=== PATIENT | female | born 2000 | race Caucasian/White ===

== ENCOUNTER 2021-01-18 02:15 | Day surgery (SDC) | payer BC, SELFPAY ==
[2021-01-14 10:55] VITALS: BMI 22.3
--- NOTE | 2021-01-16 08:56 | PM.IMHP ---
H&P: HPI History of Present Illness Date/Time: 01/16/21 08:56 Patient presents for planned surgical procedure. No change in symptoms or medical history. Chief Complaint: Chronic tonsillitis, recurrent tonsillitis, chronic pharyngitis, recurrent pharyngitis Review of Systems Constitutional: Constitutional: Denies fatigue, Denies fever(s) and Denies lethargy Eyes: Eyes: Denies blurry vision and Denies change in vision ENT: Reports as per HPI Cardiovascular: Cardiovascular: Denies chest pain Respiratory: Respiratory: Denies cough Endocrine: Endocrine: Denies fatigue Hematologic/Lymphatic: Hematologic/Lymphatic: Denies easy bleeding, Denies easy bruising and Denies lymphadenopathy Allergic/Immunologic: Allergic/Immunologic: Denies seasonal rhinorrhea [facility] Past Medical History Medical History BMI 22.0-22.9, adult Family History Family History Father Hypertension Depression Mother Depression Sibling No problems noted. Grandparent Cancer Hypertension Depression Heart disease Grandparent Hypertension Depression Other Malignant neoplasm of prostate Skin cancer Thyroid cancer Social History Social History Smoking status: Current every day smoker Tobacco type: e-cigarettes/vaping Second hand tobacco smoke exposure: No Alcohol intake: current Drinks per week: 2 Alcohol use details: HARD LIQUOR Substance use: current Substance use type: marijuana Other substance usage details: 1GM/WEEK Last use: 01/10/2021 Living arrangements: with family Additional occupation/education comments: Interior design Gender identity (if verbalized by the patient): Female Spiritual care concerns: No Meds Home Medications and Allergies Home Medications Medication Instructions Recorded Confirmed Type etonogestrel 0.12 mg-ethinyl 1 vag ring VAGINAL ONCE 07/29/19 01/14/21 History estradiol 0.015 mg/24 hr vaginal ring fluoxetine 10 mg capsule 10 mg PO DAILY #30 cap 12/26/20 01/14/21 Rx ibuprofen 400 mg PO Q6H PRN 01/14/21 01/14/21 History multivit with min-folic acid 1 tablet PO DAILY 01/14/21 01/14/21 History [Adult One Daily Multivitamin] Allergies Allergy/AdvReac Type Severity Reaction Status Date / Time clindamycin Allergy Severe FACIAL Verified 01/14/21 10:52 SWELLING Penicillins Allergy Severe ANAPHYLACTIC Verified 01/14/21 10:52 REACTION doxycycline Allergy Intermediate Hives / Verified 01/14/21 10:52 Red Face Exam Const: General: cooperative, healthy appearing, comfortable, well developed and alert HENMT: Head: normal to inspection, normocephalic and atraumatic Ears: hearing grossly normal bilaterally, external ears normal, TM's normal bilaterally and EAC's normal General nose exam: Normal external nose present, Normal nares present, No nasal polyps present, Normal nasal mucous membranes and turbinates present and Normal septum present Face and sinus: normal facial exam Mouth: Yes Normal oral and palatal mucosa present, Yes lip normal, Yes tongue normal, Yes oropharynx normal and Yes moist mucous membranes Teeth and gingiva: dentition normal and gingiva normal Throat: posterior oropharynx normal, tonisls abnormal ( 3+ edematous cryptic) and uvula midline Eyes: General: appearance normal, both eyes and all related structures Periorbital: periorbital findings normal Eyelids: eyelids normal Conjunctivae: conjunctivae normal Sclera: sclerae normal Neck: Neck: normal visual inspection, full ROM and no lymphadenopathy Thyroid: thyroid normal Lymphatic: no lymphadenopathy noted Resp: Effort & Inspection: normal respiratory effort and able to speak in complete sentences Cardio: Jugular venous distension: no JVD Neuro: Cranial nerves: Yes CN's II-XII intact
[2021-01-18] VITALS (8 sets, daily range): BP systolic 94–119; BP diastolic 47–81; PULSE 59–98; RESP 12–21; TEMP 36.2–37.2; O2SAT 99–100
--- NOTE | 2021-01-18 07:03 | WPDHPUPDATE1 ---
History and Physical Update Update Date/Time: 01/18/21 07:03 History and Physical has been reviewed, including an updated exam of the patient. There are NO changes in the patient's condition. Risks, benefits, and alternatives have been discussed and questions answered. Patient agrees to proceed with procedure.
--- NOTE | 2021-01-18 09:46 | P.PNAN_ITS ---
Anes - Initial Pre Proc Eval Procedure: Operation Date: 01/18/21 11:30 Proposed Procedures p Tonsillectomy - Jl Balbuena MD Date/Time: 01/18/21 09:46 Surgeon: Jl Balbuena MD Pre Op Diagnosis: chronic tonsillitis Patient Data Age: 20 Gender: F Height: 1.63 m Weight: 58.97 kg Allergies Allergy/AdvReac Type Severity Reaction Status Date / Time clindamycin Allergy Severe FACIAL Verified 01/14/21 10:52 SWELLING Penicillins Allergy Severe ANAPHYLACTIC Verified 01/14/21 10:52 REACTION doxycycline Allergy Intermediate Hives / Verified 01/14/21 10:52 Red Face Home Medications Medication Instructions Recorded Confirmed Type etonogestrel 0.12 mg-ethinyl 1 vag ring VAGINAL ONCE 07/29/19 01/14/21 History estradiol 0.015 mg/24 hr vaginal ring fluoxetine 10 mg capsule 10 mg PO DAILY #30 cap 12/26/20 01/14/21 Rx ibuprofen 400 mg PO Q6H PRN 01/14/21 01/14/21 History multivit with min-folic acid 1 tablet PO DAILY 01/14/21 01/14/21 History [Adult One Daily Multivitamin] Patient hx anesthesia problems: none Family hx anesthesia problems: none PMFSH Past Medical History Medical History BMI 22.0-22.9, adult Family History Family History Father Hypertension Depression Mother Depression Sibling No problems noted. Grandparent Cancer Hypertension Depression Heart disease Grandparent Hypertension Depression Other Malignant neoplasm of prostate Skin cancer Thyroid cancer Social History Social History Smoking status: Current every day smoker Tobacco type: e-cigarettes/vaping Second hand tobacco smoke exposure: No Alcohol intake: current Drinks per week: 2 Alcohol use details: HARD LIQUOR Substance use: current Substance use type: marijuana Other substance usage details: 1GM/WEEK Last use: 01/10/2021 Living arrangements: with family Additional occupation/education comments: Interior design Gender identity (if verbalized by the patient): Female Spiritual care concerns: No Anes - Eval Final PreProcedure Day of Procedure 01/18/21 09:46 Patient weight: normal Heart: regular rate and rhythm Lungs: clear to auscultation Airway: Mallampati scale class II Neurological: alert and oriented Last oral intake: >/= 8 hours ASA classification: II Emergent: no Anesthetic plan: proceed Anesthesia type and monitoring: general ETT and standard monitoring Informed Consent: The patient's anesthetic plan and its attendant risks and benefits were discussed with the patient/family/POA. Questions were solicited and answers provided to the satisfaction of the patient/family/POA.
[2021-01-18] MEDS: LACTATED RINGERS 1,000 ML 30 ML IV CONT ×2 (09:50→11:50)
[2021-01-18] MEDS: ACETAMINOPHEN 500 MG TABLET 1000 MG PO (09:50)
--- NOTE | 2021-01-18 11:11 | P.OP_ITS ---
Procedure Note - Detailed Date of Procedure 01/18/21 Pre-op Diagnosis chronic tonsillitis , recurrent tonsillitis Post-op Diagnosis same Procedure Performed tonsillectomy Surgeon Jl Balbuena MD Statement Services Representative none Anesthesia general Indications see above Findings 2+ edematous cryptic tonsils with stones present Description of Procedure the patient was correctly identified and consent was verified in the preoperative holding area. The patient was then brought to the operating room time-out was performed. General anesthesia was induced and endotracheal tube was secured the patient's airway in the midline. Patient was then prepped and draped for the aforementioned procedures. McIvor mouth gag was inserted the patient's airway revealing tonsils with the above findings. The left was grasped with a curved Allis and removed in the extracapsular plane using size Bovie electrocautery at a setting of 10 hemostasis was achieved using intermittent application of suction Bovie electrocautery at a setting of 15. The exact same procedure was performed on the right tonsil with exact same findings. The McIvor mouth gag was then lowered for 30 seconds and reopened reveal no bleeding. I performed all dictated portions of the procedure all the hardware including McIvor mouth gag was removed from the patient's airway. Care the patient was turned over to Anesthesiology. Blood loss 15 cc. There were no complications. Estimated Blood Loss -15.0 Drains No Packing No Pathology yes Complications No immediate complications Condition stable Disposition PACU
[2021-01-18] MEDS: fentaNYL CITRATE INJ (*CRX) 100 MCG/2 ML VIAL 25 MCG IV PUSH ×4 (11:23→11:47)
--- NOTE | 2021-01-18 11:51 | SUR.PHASEI ---
PT AWAKE AND ALERT. STATES THROAT PAIN IMPROVED NOW. READY FOR PO FLUIDS.
== END 2021-01-18 13:18 | disposition home or self-care (01) ==
PROVIDERS: PCP Family Medicine; Visit Provider Otolaryngology
PROC: (CPT 42826; principal; 2021-01-18 11:30)
DX: J35.01 Chronic tonsillitis (principal); F17.290 Nicotine dependence, other tobacco product, uncomplicated; F12.90 Cannabis use, unspecified, uncomplicated
CPT/HCPCS: 42826; 88302; A9270; J0330; J1100; J2250; J2405; J2704; J3010; J7120

== ENCOUNTER → 2021-04-26 11:51 | Outpatient (CLI) | payer BC, SELFPAY ==
--- NOTE | ~2021-04-26 | US_ITS ---
EXAMINATION: US transvaginal DATE: 04/26/2021 12:17 INDICATION: Other intra-abdominal and pelvic swelling, mass, and lump. Left lower quadrant abdominal pain. TECHNIQUE: Multiple transvaginal sonographic images of the pelvis were obtained. COMPARISON: CT abdomen and pelvis 07/08/2018, pelvis ultrasound 08/02/2018 FINDINGS: The uterus measures 6.7 x 3.3 x 4.6 cm. There is no free fluid in the pelvis. The endometrial complex measures 12 mm in thickness. The right ovary measures 2.3 x 2.4 x 2.4 cm. The left ovary measures 6. 2 x 6.7 x 7.7 cm. There is a 6.6 cm cyst in left ovary. There is normal vascular flow in the ovaries. IMPRESSION: 1. 6.6 cm cyst in left ovary, new from 08/02/18, likely benign. Pelvis ultrasound is recommended in one year. Reviewed, dictated and finalized at location A.
== END ==
PROVIDERS: Visit Provider Nurse Practitioner
DX: R19.09 Other intra-abdominal and pelvic swelling, mass and lump (principal); N83.202 Unspecified ovarian cyst, left side
CPT/HCPCS: 76830

== ENCOUNTER → 2021-05-24 11:00 | Outpatient (CLI) | payer BC, SELFPAY ==
--- NOTE | ~2021-05-24 | US_ITS ---
EXAMINATION: US transvaginal DATE: 05/24/2021 11:16 INDICATION: Left lower quadrant pain. History of left ovarian cyst. Comparison:Ultrasound dated 04/26/2021 TECHNIQUE: Multiple transabdominal and endovaginal sonographic images of the pelvis performed. FINDINGS: The uterus measures 6.9 x 3.8 x 4.5 cm. The endometrial complex measures 9 mm. The right ovary measures 2.8 x 2.8 x 2.1 cm and the left ovary measures 2.2 x 2.2 x 2 cm. There is a small follicle in the left ovary measuring 1.5 cm. Normal doppler signal in both ovaries. There is free fluid in the pelvis. There are no abnormal masses seen on either side. IMPRESSION: 1. Small left ovarian follicle measuring 1.5 cm. Otherwise, unremarkable pelvic ultrasound. Reviewed, dictated and finalized at location A. ENGINEER
== END ==
PROVIDERS: Visit Provider Obstetrics & Gynecology Gynecology
DX: N83.202 Unspecified ovarian cyst, left side (principal)
CPT/HCPCS: 76830

== ENCOUNTER → 2021-06-26 01:40 | Outpatient (CLI) | payer BC, SELFPAY ==
[2021-06-27 02:22] LABS: SARS-CoV-2 RNA PCR Positive
== END ==
PROVIDERS: PCP Family Medicine; Visit Provider Nurse Practitioner Family
DX: U07.1 COVID-19 (principal)
CPT/HCPCS: C9803; U0003; U0005

== ENCOUNTER 2021-10-07 10:17 | Outpatient (CLI) | payer BC, SELFPAY ==
--- NOTE | 2021-10-07 10:43 | ECG_ITS ---
Measurements Intervals [place] Rate: 59 P: 57 GA: 135 QRS: 34 QRSD: 81 T: 2 QT: 456 QTc: 453 Interpretive Statements SINUS BRADYCARDIA WITH SINUS ARRHYTHMIA NONSPECIFIC T-WAVE ABNORMALITY NO PREVIOUS ECG AVAILABLE FOR COMPARISON Electronically Signed On 10-07-2021 15:40:26 CDT by Ever Johnson M.D.
[2021-10-07 11:05] LABS: Hematocrit 36.7 % (37.0-47.0); Hemoglobin 11.8 g/dL (12.0-15.0); Mean Corpuscular HGB Conc 32.2 g/dl (32-36); Mean Corpuscular Hemoglobin 28.3 pg (26-34); Mean Platelet Volume 9.8 fl (7.4-10.4); Platelet Count Result 287 k/mm3 (150-375); Red Blood Count 4.17 M/mm3 (4.2-5.4); Red Cell Distribution Width 12.8 % (11.5-14.5); White Blood Count 5.4 K/mm3 (4.5-10.0)
[2021-10-07 11:13] LABS: Pregnancy On Board Control Positive; Urine Pregnancy Test Negative
[2021-10-07 11:16] LABS: Anion Gap 8 mmol/L (8-16); Blood Urea Nitrogen 11 mg/dL (7-17); Calcium 8.4 mg/dL (8.4-10.2); Carbon Dioxide 22 mmol/L (22-30); Chloride 107 mmol/L (98-107); Estimated Glomerular Filt Rate > 60; Glucose 92 mg/dL (65-110); Potassium 4.1 mmol/L (3.4-5.0); Sodium 137 mmol/L (137-145)
== END 2021-10-07 10:18 | disposition home or self-care (01) ==
PROVIDERS: PCP Family Medicine; Visit Provider Nurse Practitioner Family
DX: F41.8 Other specified anxiety disorders (principal); N92.6 Irregular menstruation, unspecified; R10.9 Unspecified abdominal pain; R07.89 Other chest pain; R00.1 Bradycardia, unspecified
CPT/HCPCS: 36415; 80048; 81025; 84443; 85027; 93005

== ENCOUNTER 2021-10-23 11:04 | Outpatient (CLI) | payer BC, SELFPAY ==
--- NOTE | 2021-10-29 12:37 | WPDHOLTEREM ---
Holter/Event Monitor Holter/Event Monitor Date of procedure: 10/23/21 Holter/Event Procedure: 24 Hr Holter Monitor Indications: Cardiac arrhythmia Conclusion: 1. 24 hour holter monitor on 10/23/21. 2. Underlying rhythm is sinus rhythm. HR range 49-160 bpm; average HR 85 bpm. HR at 160 bpm was at 14:36. 3. There are 2 premature supraventricular complexes. No supraventricular tachycardia. 4. No premature ventricular complexes. No ventricular tachycardia. 5. No sinoatrial or atrioventricular blocks. No significant pauses greater than 2 seconds. 6. Patient reports symptoms of chest pain, dizziness which demonstrate sinus rhythm, HR range 86-115 bpm.
== END 2021-10-23 11:05 | disposition home or self-care (01) ==
PROVIDERS: PCP Family Medicine; Visit Provider Nurse Practitioner Family
DX: I49.9 Cardiac arrhythmia, unspecified (principal)
CPT/HCPCS: 93225; 93226

== ENCOUNTER → 2022-10-28 10:47 | Outpatient (CLI) | payer BC, SELFPAY ==
--- NOTE | ~2022-10-28 | XR_ITS ---
Clinical Indication: Chest pain PA and lateral views of the chest: Comparison: 09/02/2018 Findings: The lungs are clear, without evidence of focal consolidation or pleural effusion. Cardiome diastinal silhouette is within normal limits. Bones and soft tissues are unremarkable. Impression: Normal chest. Reviewed, dictated and finalized at location . Impression: Normal chest.
== END ==
PROVIDERS: PCP Family Medicine; Visit Provider Nurse Practitioner Family
DX: R07.9 Chest pain, unspecified (principal); R06.02 Shortness of breath
CPT/HCPCS: 71046

== ENCOUNTER 2023-01-22 10:45 | Outpatient (CLI) | payer BC, SELFPAY ==
--- NOTE | 2023-01-22 10:54 | ECHO_ITS ---
Patient Info Name: Susan Hernandez Age: 22 years : 2000 Gender: Female Ht: 64 in Wt: 130 lbs BSA: 1.64 m2 HR: 74 bpm BP: 115 / 83 mmHg Heart Rhythm: Sinus Rhythm Technical Quality: Good Exam Date: 01/22/2023 11:05 AM Exam Location: [facility] Patient Status: Outpatient Admit Date: 01/22/2023 Staff Ordering Physician: Jason Bellamy MD Manager Law: Rodolfo Sood RDCS Attending Provider: Jason Bellamy MD Referring Physician: Josesito BOGGS; Exam Type: CA echo doppler color flow Study Info Indications - cardiac Arythmia Complete two-dimensional, color flow and Doppler transthoracic echocardiogram is performed. Summary 1. Complete two-dimensional, color flow and Doppler transthoracic echocardiogram is performed. 2. Left ventricular chamber dimension is normal. 3. Left ventricular systolic function is normal, estimated at 60-65%. 4. The left ventricular diastolic function is normal. 5. E/e' 6 is not elevated. 6. Atrial septal aneurysm without shunt by color doppler. 7. There is trace tricuspid valve regurgitation. 8. No pulmonary hypertension, estimated pulmonary arterial systolic pressure is 27 mmHg. Left Ventricle E/e' 6 is not elevated. Left ventricular chamber dimension is normal. Left ventricular systolic function is normal, estimated at 60-65%. The left ventricular diastolic function is normal. Right Ventricle Right ventricular systolic function is normal and with normal TAPSE 2.6 cm. Right ventricular chamber dimension is normal. Left Atria Left atrial chamber dimension is normal. Right Atria Right atrial chamber dimension is normal. Atrial Septum Atrial septal aneurysm without shunt by color doppler. Aortic Valve The aortic valve is trileaflet. There is no aortic valve stenosis. There is no aortic valve regurgitation. Pulmonic Valve There is no pulmonic regurgitation. Mitral Valve There is no mitral valve stenosis. There is no mitral valve regurgitation. Tricuspid Valve There is trace tricuspid valve regurgitation. No pulmonary hypertension, estimated pulmonary arterial systolic pressure is 27 mmHg. Pericardium/Pleural There is no pericardial effusion. Inferior Vena Cava Normal inferior vena cava with >50% collapse upon inspiration consistent with normal right atrial pressure, 5 mmHg. Aorta The aortic root size at the sinus of Valsalva is normal. Left Ventricular Outflow Tract Name Value Normal LVOT 2D LVOT Diameter 1.9 cm LVOT Doppler LVOT Peak Gradient 3 mmHg LVOT Mean Gradient 2 mmHg LVOT VTI 26 cm LVOT VTI/AV VTI Ratio 1.1 LVOT Stroke Volume 75 ml LVOT CO 4.2 l/min LVOT CI 2.5 l/min/m2 Pulmonic Valve Name Value Normal RVOT Doppler RVOT Peak Gradient
--- NOTE | 2023-02-02 16:59 | WPDHOLTEREM ---
Holter/Event Monitor Holter/Event Monitor Date of procedure: 01/22/23 Holter/Event Procedure: 48 Hr Holter Monitor Indications: Palpitations Conclusion: 1. 48 hour holter monitor on 01/22/23. 2. Underlying rhythm is sinus rhythm. HR range 47-171 bpm; average HR 88 bpm. HR at 171 bpm is at 01:38. 3. There are 3 premature supraventricular complexes. No supraventricular tachycardia. 4. There are 7 premature ventricular complexes. No ventricular tachycardia. 5. No sinoatrial or atrioventricular blocks. No significant pauses greater than 2 seconds. 6. No symptoms available for correlation.
== END 2023-01-22 10:46 | disposition home or self-care (01) ==
LOC: ANHCARD 10:46
PROVIDERS: PCP Family Medicine; Visit Provider Family Medicine
DX: I49.9 Cardiac arrhythmia, unspecified (principal); R07.89 Other chest pain; D64.9 Anemia, unspecified
CPT/HCPCS: 93225; 93226; 93306

== ENCOUNTER 2023-02-13 14:00 | Outpatient (CLI) | payer BC, SELFPAY ==
--- NOTE | 2023-02-13 16:22 | WPDPFTINT ---
PFT Procedure Performed PFT Procedure Performed Spirometry with Pre/Post Bronchodilator Plethysmography (Lung Vol) Diffusing Cap (DLCO) Flow Vol Loop PFT Interpretation This is a pulmonary function test with pre and post-bronchodilator spirometry, plethysmography and diffusing capacity. The test was performed and results interpreted in accordance with the 2019 and 2005 ATS/ERS Task Force guidelines respectively using the Global Lung Function Initiative-2012 reference equations. Patient demonstrated good effort and cooperation. Reproducibility criteria were met. The quality of the pre bronchodilator spirometry maneuver was Grade B and post bronchodilator spirometry maneuver was Grade A. Findings: Spirometry: There is decreased maximal expiratory airflow at low lung volumes. The contour the inspiratory flow tracing is normal. The pre bronchodilator FVC is 3.45 L, 77% predicted. The pre bronchodilator FEV1 is 2.46 L, 64% predicted. The pre bronchodilator FEV1: FVC ratio 71%. The post bronchodilator FVC is 3.48 L, representing 1% increase. The post bronchodilator FEV1 is 2.25 L, representing a 9% decrease. The post bronchodilator FEV1: FVC ratio is 65%. Plethysmography: The total lung capacity is 5.23 L, 92% predicted. The functional residual capacity is 2.99 L, 115% predicted. The residual volume is 1.78 L, 157% predicted. Diffusing capacity: The diffusing capacity unadjusted for hemoglobin and carboxyhemoglobin is 23.9, 69% predicted. The diffusing capacity adjusted for alveolar volume is 5.20, 90% predicted. Impression: There is a moderate obstructive abnormality without significant improvement after inhaling a single dose of albuterol. The lung volumes are normal. The diffusing capacity unadjusted for hemoglobin and carboxyhemoglobin is mildly decreased and normalizes when adjusted for alveolar volume. There are no prior studies for comparison
== END 2023-02-13 14:01 | disposition home or self-care (01) ==
LOC: ANHPFT 14:01
PROVIDERS: PCP Family Medicine; Visit Provider Family Medicine
DX: R06.02 Shortness of breath (principal); R94.2 Abnormal results of pulmonary function studies
CPT/HCPCS: 94060; 94726; 94729

== ENCOUNTER 2023-03-25 15:57 | Outpatient (CLI) | payer BC, SELFPAY ==
--- NOTE | ~2023-03-25 | CT_ITS ---
EXAMINATION: CT diagnostic chest wo con DATE: 03/25/2023 16:14 INDICATION: Bronchiolitis TECHNIQUE: Computed tomography (CT) of the chest was performed without intravenous contrast. The dose -length product was 128.87 mGy-cm. Automated exposure control and iterative reconstruction technique were employed. COMPARISON: Chest dated 10/28/2022 FINDINGS: Heart size is normal. No significant pleural or pericardial effusion. There is mild axillar y lymphadenopathy, likely reactive. No mediastinal or hilar lymphadenopathy. No significant pleural o r pericardial effusion. There is a low-density lesion in the spleen, most likely benign cyst or lymph angioma. No focal airspace consolidation. There are a few small scattered 1-2 mm nodules of the lungs , likely benign. No pneumothorax. No endobronchial lesions. IMPRESSION: 1. No acute cardiopulmonary disease. 2: Mild axillary lymphadenopathy, likely reactive. Reviewed, dictated and finalized at location L.
== END 2023-03-25 15:58 | disposition home or self-care (01) ==
PROVIDERS: PCP Family Medicine; Visit Provider Internal Medicine Pulmonary Disease
DX: J44.9 Chronic obstructive pulmonary disease, unspecified (principal)
CPT/HCPCS: 71250

== ENCOUNTER 2023-09-08 08:23 | Outpatient (CLI) | payer OTHER, SELFPAY ==
--- NOTE | 2023-09-09 23:19 | WPDPFTINT ---
PFT Procedure Performed PFT Procedure Performed Spirometry with Pre/Post Bronchodilator Plethysmography (Lung Vol) Diffusing Cap (DLCO) Flow Vol Loop PFT Interpretation DOS: 09/08/2023 REQUESTING: Dr. Evangelist Kumar REASON FOR TESTING: COPD, history of vaping PULMONARY FUNCTION TESTS Results are reliable and reproducible. Spirometry: Pre bronchodilator FEV1 is 2.86 L, 86% predicted, normal. Pre bronchodilator FVC is 3.71 L, 97% predicted, normal. FEV1/FVC ratio is 77%, normal. After bronchodilator there is 3% increase in the FEV1, 2.95 L. After bronchodilator there is 2% increase in the FVC, 3.79 L, normal. These are non statistically significant increases. The FEV1/FVC ratio remained 78%. Normal. Lung volumes: Total lung capacity 4.97 L, 98%, normal. Residual volume 1.13 L, 91% predicted, normal. RV/TLC 23%, normal. Airway resistance 1.89 cmH2O/L/sec, 141% predicted. Diffusion: DLCO is 19.5, 76%, normal. DLCO/VA is 4.31, 86%, normal. Flow volume loop: Normal IMPRESSION: This is full pulmonary function test shows normal spirometry without response to bronchodilator, normal lung volumes and normal diffusion capacity. Compared to a prior PFT on 02/13/2023 there was a moderate obstructive ventilatory impairment which has resolved. Different ranges for normals are now used in reporting values however the absolute values for spirometry are improved. The previous FEV1 pre bronchodilator was 2.46 L, 64% predicted, now 2.86 L, 86%, 400 mL improvement. The FVC was 3.45 L 77%, now 3.71 L, 97%; 260 mL higher. The FEV1/FVC ratio is 77%, now normal, previously was 71%, below normal. The total lung capacity was 5.23 L, now 4.97 L, still in the normal range. The residual volume was 1.78 L, 157% predicted, now residual volume is 1.13 L, 91% predicted. RV/TLC was increased at 34%, now normal at 23%. The air trapping has resolved. Diffusion appears stable. The current DLCO is 19.5, 76%. The DLCO/VA is 4.31, 86%. Previous values were similar, DLCO 23.9 which was 69%. The DLCO/VA was 5.20, 90%. Yumiko Jung MD
== END 2023-09-08 08:24 | disposition home or self-care (01) ==
LOC: ANHPFT 08:24
PROVIDERS: PCP Family Medicine; Visit Provider Internal Medicine Pulmonary Disease
DX: J44.9 Chronic obstructive pulmonary disease, unspecified (principal)
CPT/HCPCS: 94060; 94726; 94729

== ENCOUNTER 2023-10-19 14:14 | Emergency (ER) | payer OTHER, SELFPAY ==
--- NOTE | ~2023-10-19 | US_ITS ---
EXAMINATION: US pelvic complete DATE: 10/19/2023 20:44 INDICATION: left adnexal pain TECHNIQUE: Multiple transabdominal and endovaginal sonographic images of the pelvis were obtained. COMPARISON: CT abdomen pelvis 10/19/2023. FINDINGS: Uterus: 8.3 x 4.2 x 5.3 cm. IUD, in good position. Endometrial complex obscured by the IUD. Right Ovary: 3.7 x 1.5 x 2.5 cm. Vascular flow is present. No adnexal mass. Left Ovary: 5.1 x 4.7 x 5.2 cm. Vascular flow is present. 5.2 cm cystic left adnexal mass, associated with the left ovary, nonshadowing nonvascular nodular internal echogenicity measuring 8 mm. There is no free fluid in the pelvis. IMPRESSION: 5.2 cm left ovarian cystic mass with internal nodule (O-RADS 3, low risk of malignancy). Recommend gy necology referral and nonemergent but timely pelvic MRI for further evaluation. Reviewed, dictated and finalized at location K. IMPRESSION: 5.2 cm left ovarian cystic mass with internal nodule (O-RADS 3, low risk of mal ignancy). Recommend gynecology referral and nonemergent but timely pelvic MRI f or further evaluation.
--- NOTE | ~2023-10-19 | CT_ITS ---
EXAMINATION: CT abdomen pelvis w con DATE: 10/19/2023 18:15 INDICATION: abdominal pain TECHNIQUE: Computed tomography (CT) of the abdomen and pelvis was performed with 100 mL Omnipaque-350 intravenous contrast. Automated exposure control and iterative reconstruction technique were employe d. The dose-length product was 225.51 mGy-cm. COMPARISON: 07/08/2018, report only; pelvic ultrasound performed on 08/02/2018, 04/26/2021, 05/24/2021. FINDINGS: Lower thorax: Unremarkable Liver: Normal. Biliary/Gallbladder: Gallbladder is normal. No bile duct dilation. Pancreas: No mass or duct dilation. Spleen: Simple cyst. Adrenals:No mass. Kidneys: No suspicious mass, obstructing stone, or hydronephrosis. GI tract: Mild distal esophageal and gastric wall edema. No small or large bowel dilation. Normal catherine endix. Mesentery/Peritoneum: No ascites, mass, or free air. Retroperitoneum: No mass. Pelvis: IUD, in good position. Normal right ovary. 5.2 cm simple appearing left ovarian cyst. The uri nary bladder is mostly empty. Soft Tissues: Soft tissues and body wall unremarkable. Bones: No acute osseous finding. IMPRESSION: Mild esophagitis/gastritis. Appendix not visualized. No definite right lower quadrant inflammatory process detected, although det ermination is limited by the paucity of abdominal fat. 5.2 cm simple appearing left ovarian cyst, recommend follow-up pelvic ultrasound in 2-6 months for re -characterization/demonstrate resolution. Reviewed, dictated and finalized at location K. IMPRESSION: Mild esophagitis/gastritis. Appendix not visualized. No definite right lower quadrant inflammatory process detected, although determination is limited by the paucity of abdominal fat. 5.2 cm simple appearing left ovarian cyst, recommend follow-up pelvic ultrasoun d in 2-6 months for re-characterization/demonstrate resolution.
[2023-10-19 14:32] VITALS: BP 110/77; PULSE 107; RESP 16; TEMP 36.9; O2SAT 100
--- NOTE | 2023-10-19 15:34 | ED.GENADULT ---
HPI - General Adult General Chief complaint: Abdominal Pain <Lluvia Laboy October, MEDICAL RESEARCH ASSISTANT - Last Filed: 10/19/23 15:37> Stated complaint: RLQ pain, nausea <Lluvia Laboy October, MEDICAL RESEARCH ASSISTANT - Last Filed: 10/19/23 15:37> Time Seen by Provider: 10/19/23 15:34 <Lluvia Laboy October, MEDICAL RESEARCH ASSISTANT - Last Filed: 10/19/23 15:37> Focused HPI: Susan Hernandez is a 22 y/o female who presents with reports of having lower abdominal pain that started at 1000 yesterday AM, started to have nausea vomiting at around 1600 yesterday. She reports of having a BM today and felt more pain in her abdomen. She was worried it was her IUD and went to her OB and it was confirmed that her IUD is in place and was instructed to come here to r/o appendicitis. LMP was July due to the IUD Also reports of some pain pressure with urinating that started yesterday GENERAL: Well-appearing, well-nourished, and in no acute distress. HEAD: Normocephalic, atraumatic. CHEST: Clear to auscultation. ?No respiratory distress. HEART: Regular rate and rhythm.? NEURO: ?Alert and oriented x3. Patient screened in triage and initial orders placed.? ?Additional care and disposition to be based upon?diagnostic testing and treatment. <Lluvia Laboy October, MEDICAL RESEARCH ASSISTANT - Last Filed: 10/19/23 15:37> History of Present Illness HPI narrative: Agree with HPI. <Too Selby MD - Last Filed: 10/19/23 21:41> Related Data Home medications: Home Medications Medication Instructions Recorded Confirmed multivitamin with minerals-folic 1 tablet PO DAILY 01/14/21 10/09/23 acid 0.4 mg tablet (Adult One Daily Multivitamin) <Lluvia Laboy October, MEDICAL RESEARCH ASSISTANT - Last Filed: 10/19/23 15:37> Allergies/adverse reactions: Allergies Allergy/AdvReac Type Severity Reaction Status Date / Time clindamycin Allergy Severe FACIAL Verified 10/19/23 17:43 SWELLING Penicillins Allergy Severe ANAPHYLACTIC Verified 10/19/23 17:43 REACTION doxycycline Allergy Intermediate Hives / Verified 10/19/23 17:43 Red Face <Lluvia Laboy October, MEDICAL RESEARCH ASSISTANT - Last Filed: 10/19/23 15:37> Review of Systems Constitutional: Constitutional: Reports no additional constitutional complaints <Too Selby MD - Last Filed: 10/19/23 21:41> ENT: Reports system reviewed and no additional complaints, except as documented <Too Selby MD - Last Filed: 10/19/23 21:41> Cardiovascular: Cardiovascular: Reports no additional cardiovascular complaints <Too Selby MD - Last Filed: 10/19/23 21:41> Respiratory: Respiratory: Reports no additional respiratory complaints <Too Selby MD - Last Filed: 10/19/23 21:41> Gastrointestinal: Gastrointestinal: Reports abdominal pain, Denies diarrhea, Denies nausea and Denies vomiting <Too Selby MD - Last Filed: 10/19/23 21:41> Genitourinary: Genitourinary: Denies nocturia, Denies dysuria, Reports pelvic pain and Denies flank pain <Too Selby MD - Last Filed: 10/19/23 21:41> [facility] Past Medical History Medical History: Medical History Atrial septal aneurysm BMI 22.0-22.9, adult Bronchitis Obstructive lung disease Sinusitis <Lluvia Velasquez, MEDICAL RESEARCH ASSISTANT - Last Filed: 10/19/23 15:37> Family History Family History: Family History Father Hypertension Depression Mother Depression Sibling No problems noted. Grandparent Cancer Hypertension Depression Heart disease Grandparent Hypertension Depression Other Malignant neoplasm of prostate Skin cancer Thyroid cancer <Lluvia Velasquez MEDICAL RESEARCH ASSISTANT - Last Filed: 10/19/23 15:37> Social History Social History: Social History (Updated 10/09/23 @ 09:27 by Georgie Barclay MA) Years smoked: 1 Smoking status: Former smoker Tobacco type: e-cigarettes/vaping Second hand tobacco smoke exposure: No Alcohol intake: current Drinks per week: 2 Substance use: c
[2023-10-19 17:49] LABS: Basophils Percent Auto 0.6 % (0.2-1.2); Eosinophils Absolute Auto 0.3 K/mm3 (0-0.3); Eosinophils Percent Auto 4.8 % (0-4.4); Hematocrit 40.5 % (37.0-47.0); Hemoglobin 13.2 g/dL (12.0-15.0); Immature Granulocyte Absolute 0.01 K/mm3 (0.00-0.031); Immature Granulocyte Percent A 0.2 % (0-0.5); Lymphocytes Absolute Auto 1.91 K/mm3 (0.9-3.2); Lymphocytes Percent Auto 36.9 % (18.3-44.2); Mean Corpuscular HGB Conc 32.6 g/dl (32-36); Mean Corpuscular Hemoglobin 28.4 pg (26-34); Mean Corpuscular Volume 87.3 fl (80-100); Mean Platelet Volume 9.6 fl (7.4-10.4); Monocytes Absolute Auto 0.6 K/mm3 (0.1-0.6); Monocytes Percent Auto 10.8 % (2.6-8.5); Neutrophils Absolute Auto 2.4 K/mm3 (1.3-6.7); Neutrophils Percent Auto 46.7 % (45.5-73.1); Platelet Count Result 243 k/mm3 (150-375); Red Blood Count 4.64 M/mm3 (4.2-5.4); Red Cell Distribution Width 12.8 % (11.5-14.5); White Blood Count 5.2 K/mm3 (4.5-10.0)
[2023-10-19 17:58] LABS: Alanine Aminotransferase 14 U/L (6-35); Albumin Level 4.7 g/dL (3.5-5.1); Alkaline Phosphatase 68 U/L (38-126); Anion Gap 7 mmol/L (4-12); Aspartate Amino Transferase 22 U/L (14-36); Bilirubin,Total 0.5 mg/dL (0.2-1.3); Blood Urea Nitrogen 8 mg/dL (7-17); Calcium 9.3 mg/dL (8.4-10.2); Carbon Dioxide 26 mmol/L (22-30); Chloride 104 mmol/L (98-107); Estimated CRCL calculation 83 ml/min; Estimated Glomerular Filt Rate > 60; Glucose 89 mg/dL (65-110); Sodium 137 mmol/L (137-145)
[2023-10-19 18:05] LABS: Lipase 46 U/L (23-300)
[2023-10-19 18:17] LABS: Appearance Urine Cloudy (Clear); Bacteria Urine Rare /hpf; Bilirubin Urine Negative (Negative); Blood Urine Negative (Negative); Color Urine Dark Yellow (Yellow); Glucose Urine UA 1+ mg/dL (Negative); Ketones Urine Negative (Negative); Leukocyte Esterase Ur Negative LEU/UL (Negative); Nitrate Urine Negative (Negative); Non Pathogenic Casts 0-2; Protein Urine Trace mg/dL (Negative); RBC Urine 0-2 /hpf (0-2); Specific Grav Ur 1.028 (1.001-1.035); Squamous Epithelial Cell Urine Few /hpf (Few); pH Urine 5.5 (5.0-9.0)
[2023-10-19 18:28] LABS: Add Urine Microscopic? YES
[2023-10-19 19:42] VITALS: BP 128/85; PULSE 75; RESP 18; O2SAT 100
== END 2023-10-19 21:49 | disposition home or self-care (01) ==
PROVIDERS: Nurse Practitioner Family; Emergency Provider Emergency Medicine; PCP Family Medicine
DX: N83.292 Other ovarian cyst, left side (principal); R10.2 Pelvic and perineal pain; J98.4 Other disorders of lung; Z97.5 Presence of (intrauterine) contraceptive device; Z87.891 Personal history of nicotine dependence; K20.90 Esophagitis, unspecified without bleeding; K29.70 Gastritis, unspecified, without bleeding
CPT/HCPCS: 36415; 74177; 76856; 80053; 81001; 81025; 83690; 85025; 87086; 87088; 99284; Q9967

== ENCOUNTER 2024-01-04 15:58 | Outpatient (CLI) | payer OTHER, SELFPAY ==
--- NOTE | ~2024-01-04 | US_ITS ---
EXAMINATION: US transvaginal DATE: 01/04/2024 16:18 INDICATION: Left ovarian cyst. TECHNIQUE: Multiple transvaginal sonographic images of the pelvis were obtained. COMPARISON: pelvis ultrasound 10/19/2023 FINDINGS: The uterus measures 7.9 x 3.3 x 4.6 cm. There is no free fluid in the pelvis. The endometrial complex measures 5 mm in thickness. There is an intrauterine device in expected position. The right ovary me asures 6.7 x 5.8 x 5.4 cm. There is a 4.1 cm hypoechoic mass in the right ovary, consistent with a he morrhagic cyst. The left ovary measures 3.3 x 1.8 x 3.0 cm. There is normal vascular flow in the ovar ies. IMPRESSION: 1. New 4.1 cm hemorrhagic cyst in right ovary. 2. Interval resolution of the left ovarian cyst. Reviewed, dictated and finalized at location E.
== END 2024-01-04 15:59 ==
LOC: MICIMG 15:59
PROVIDERS: PCP Obstetrics & Gynecology Gynecology; Visit Provider Obstetrics & Gynecology Gynecology
DX: N83.201 Unspecified ovarian cyst, right side (principal)
CPT/HCPCS: 76830

== ENCOUNTER 2025-01-23 17:05 | Emergency (ER) | payer OTHER, SELFPAY ==
[2025-01-23] VITALS (10 sets, daily range): BP systolic 108–127; BP diastolic 50–77; PULSE 82; RESP 18; TEMP 36.7; O2SAT 99–100
--- NOTE | ~2025-01-23 | CT_ITS ---
EXAMINATION: CTA chest PE abdomen pel DATE: 01/23/2025 22:40 INDICATION: Right flank pain and pleuritis. TECHNIQUE: Computed tomography (CT) pulmonary angiogram of the chest was performed with 100 mL Omnipa que-350 intravenous contrast. Additional 3D reconstructions utilizing coronal maximum intensity proje ction (MIP) were performed. CT of the abdomen and pelvis was performed with intravenous contrast util izing the same contrast bolus following a short delay. Automated exposure control and iterative recon struction technique were employed. The dose-length product was 398.69 mGy-cm. COMPARISON: CT abdomen pelvis dated 10/19/[address] chest dated 03/25/2023 FINDINGS: Chest: No pulmonary embolism. Lungs are clear with no suspicious pulmonary nodules, pneumonia, pulmonary aidan ma or pleural effusion. Heart size is normal. No pericardial effusion. Thoracic aorta is normal in ca liber with no dissection. No pathologically enlarged thoracic lymphadenopathy. Likely benign 7 mm hyp odense right thyroid nodule. Mild thoracic spondylosis with mild anterior wedging of a few mid to low er thoracic vertebral bodies. Abdomen/pelvis: Liver, gallbladder, pancreas, bilateral adrenal glands and kidneys are normal. Bowels including the a ppendix are normal. Unchanged 1.4 cm low-attenuation splenic cyst. T-shaped IUD in expected position within the endometrial canal of the anteverted uterus. Contraceptive ring and a vaginal vault. Right ovary is decompressed bladder are unremarkable. 5.1 cm left adnexal cyst. No free intraperitoneal gas or fluid. No pathologically enlarged abdominal or pelvic lymphadenopathy. Mild lumbar levocurvature. IMPRESSION: 1. No pulmonary embolism or other acute cardiopulmonary disease. 2. No acute intra-abdominal/pelvic process. Reviewed, dictated and finalized at location A.
--- OUTSIDE RECORDS SUMMARY | 2025-01-23 17:07 | XMS_ITS | Referral Summary ---
Author Organization [address] Address [address] [place] [id number] Care Team Providers Care Assistant Warehouse Manager Name Role Phone Jason Bellamy MD Primary Care Provider [phone] Encounters Date Type Department Care Team Description 01/20/2025 7:15 PM CDT Office Visit [facility] Convenient Care at [address] [phone] Mamta Chand, MAYCOL RUQ abdominal pain (Primary Dx); RLQ abdominal pain from Last 3 Months Allergies Active Allergy Reactions Criticality Noted Date Comments Clindamycin Swelling Medium 09/09/2016 Doxycycline Urticaria Medium 04/19/2018 Penicillins Rash Medium 09/09/2016 Medications [id number]-tus x-Naakallr-jxo al 27 mg iron-1.13 mg-581.92 mg capsule Take by mouth Active Annovera 0.15-0.013 mg/24 hour ring 12/06/19 25 Active etonogestreL-e thinyl estradioL (NUVARING, ELURYNG) 0.12-0.015 mg/24 hr vaginal ring Insert 1 each into the vagina every 28 (twenty-eight) days Insert vaginally and leave in place for 3 consecutive weeks, then remove for 1 week. 025 Discontinued levonorgestreL (MIRENA) IUD 1 each by intrauterine route once 025 Discontinued Active Problems Problem Noted Date Diagnosed Date Other chest pain 07/15/2023 Social History Tobacco Use Types Packs/Day Years Used Date Smoking Tobacco: Never Tobacco Cessation:Counseling Given: Not Answered Comments Unknown Sex and Gender Information Value Date Recorded Sex Assigned at Not on file Legal Sex Female 9:07 AM CDT Gender Identity Not on file Sexual Orientation Not on file Last Filed Vital Signs Vital Sign Reading Time Taken Comments Blood Pressure 110/74 01/20/2025 7:17 PM CDT Pulse 60 01/20/2025 7:17 PM CDT Temperature 36.7 C (98.1 F) 01/20/2025 7:17 PM CDT Respiratory Rate 21 01/20/2025 7:17 PM CDT Oxygen Saturation 99% 01/20/2025 7:17 PM CDT Inhaled Oxygen Concentration - - Weight 62.1 kg (137 lb) 01/20/2025 7:17 PM CDT Height 162.6 cm (5' 4) 01/20/2025 7:17 PM CDT Body Mass Index 23.52 01/20/2025 7:17 PM CDT Plan of Treatment Not on file Insurance [facility] CHOICE PLUS Care Teams Assistant Warehouse Manager Relationship Specialty Start Date End Date Jason Bellamy MD PCP - General Family Medicine 02/05/23
--- OUTSIDE RECORDS SUMMARY | 2025-01-23 17:07 | XMS_ITS | Clinical Summary ---
Author Organization [facility] Address [address] [place] [address] Care Team Providers Care [employer] Patrol Name Role Phone Unavailable Primary Care Provider Unavailabl e Source Comments [facility],non-owned Affiliates and Associated Physician Practices is amultiple site organization consisting of ambulatory clinics and hospital sitesin [place], [place]. This disclosure is being madepursuant to the Care Everywhere program and may not contain all information available regarding this patient. Last updated 18.[facility] Allergies Active Allergy Reactions Criticality Noted Date Comments Clindamycin Swelling 09/09/2016 Doxycycline Urticaria Medium 04/19/2018 Penicillins Rash Medium 09/09/2016 Medications * Be aware that medications may not be up to date on this document. Alwaysverify current medications with the patient. Desogestrel-Ethiny l Estradiol (ISIBLOOM PO) Active Social History Tobacco Use Types Packs/Day Years Used Date Smoking Tobacco: Never Smokeless Tobacco: Never Comments No Sex and Gender Information Value Date Recorded Sex Assigned at Not on file Legal Sex Female 5:35 PM CDT Gender Identity Not on file Sexual Orientation Not on file Last Filed Vital Signs Vital Sign Reading Time Taken Comments Blood Pressure 102/70 04/19/2018 5:48 PM CDT Pulse 78 04/19/2018 5:48 PM CDT Temperature 37.4 C (99.3 F) 04/19/2018 5:48 PM CDT Respiratory Rate 14 04/19/2018 5:48 PM CDT Oxygen Saturation 98% 04/19/2018 5:48 PM CDT Inhaled Oxygen Concentration - - Weight 55.3 kg (122 lb) 04/19/2018 5:48 PM CDT Height 162.6 cm (5' 4) 04/19/2018 5:48 PM CDT Body Mass Index 20.94 04/19/2018 5:48 PM CDT Plan of Treatment Health Maintenance Due Date Last Done Comments HIV SCREENING 11/29/2015 HPV VACCINE (1 - 3-dose series) 11/29/2015 CHLAMYDIA/GONORRHEA SCREENING 2016 HEPATITIS C SCREENING 11/24/2018 DTAP/TDAP/TD VACCINES (1 - Tdap) 11/29/2019 HEPATITIS B VACCINE (1 of 3 - 19+ 3-dose series) 11/29/2019 COVID-19 VACCINE (1 - 2023-2 5 season) 2024 DEPRESSION SCREENING 06/29/2024 INFLUENZA VACCINE (#1) 2025 ZOSTER VACCINE (1 of 2) 2050 HIB VACCINE Aged Out No longer eligi ble based on patient's age to complete this topic MENINGOCOCCAL (Group B) VACC INE SHARED DECISION-MAKING Aged Out No longer eligibl e based on patient's age to complete this topic MENINGOCOCCAL GROUPS A/C/Y/W VACCINE Aged Out No longer eligible b ased on patient's age to complete this topic PNEUMOCOCCAL VACCINE Aged Out No long er eligible based on patient's age to complete this topic
--- OUTSIDE RECORDS SUMMARY | 2025-01-23 17:07 | XMS_ITS | Clinical Summary ---
Author Organization [facility] [address] Address [address] [place] [phone] Care Team Providers Care Syrup Shed Supervisor Name Role Phone Jason Bellamy MD Primary Care Provider [phone] Allergies Active Allergy Reactions Criticality Noted Date Comments Clindamycin Swelling Medium 09/09/2016 Doxycycline Urticaria Medium 04/19/2018 Penicillins Rash Medium 09/09/2016 Medications -bcd l-Bjvcphnn-dqk al 27 mg iron-1.13 mg-581.92 mg capsule [...] Date Diagnosed Date Other chest pain 07/15/2023 Encounters Date Type Department Care Team Description 01/20/2025 7:15 PM CDT Office Visit [facility] Care at [address] [phone] Mamta Chand, MAYCOL RUQ abdominal pain (Primary Dx); RLQ abdominal pain from Last 3 Months Surgical History Surgery Date Site/Laterality Comments TONSILLECTOMY Medical History Medical History Date Comments Chest pain Atrial septal aneurysm Shortness of breath Family History Medical History Relation Name Comments Depression Father Hypertension Father Depression Mother Relation Name Status Comments Father Alive Mother Alive Social History Tobacco Use Types Packs/Day Years Used Date Smoking Tobacco: Never Tobacco Cessation:Counseling Given: Not Answered Comments Unknown Sex and Gender Information Value Date Recorded Sex Assigned at Not on file Legal Sex Female 9:07 AM CDT Gender Identity Not on file Sexual Orientation Not on file Obstetrics History Last Filed Vital Signs Vital Sign Reading [...] 01/20/2025 7:17 PM CDT Plan of Treatment Health Maintenance Due Date Last Done Comments Cervical Cancer Screening 2000 Depression Screening 2000 Hepatitis C Screening 2000 HPV Vaccines (1 - 3-dose series) 11/29/2015 Regular Well Visit/Exam 18-64 2018 DTaP/Tdap/Td Vaccine (7 - Td or Tdap) 12/29/2021 12/30/2011, 10/02/2005, 12/18/2003, Additional history exists Covid-19 Vaccine ( season) 2024 11/23/2020, 11/02/2020 Influenza Vaccine (#1) 2025 07/02/2020 Hepatitis B Screening Completed 09/06/2001 , 2000, 2000 Pneumococcal vaccine <65 Aged Out 002, 04/05/2001, 02/01/2001 No longer eligible based on patient's age to complete this topic Varicella Vaccines Completed 12/30/2011, 07/18/2003 Insurance [facility] CHOICE PLUS Care Teams Syrup Shed Supervisor Relationship Specialty Start Date End Date Jason Bellamy MD PCP - General Family Medicine 02/05/23
[2025-01-23 21:43] LABS: BEDSIDEPREGUCG Negative (Negative)
[2025-01-23 21:48] LABS: Hematocrit 35.8 % (37.0-47.0); Hemoglobin 11.7 g/dL (12.0-15.0); Immature Granulocyte Percent A 0.4 % (0-0.5); Lymphocytes Absolute Auto 2.99 K/mm3 (0.9-3.2); Mean Corpuscular HGB Conc 32.7 g/dl (32-36); Mean Corpuscular Hemoglobin 28.4 pg (26-34); Mean Corpuscular Volume 86.9 fl (80-100); Nucleated Red Blood Cells Absolute Auto 0.000 K/mm3 (0.0-0.012); Nucleated Red Blood Cells Perc 0.0 % (0.0-0.2); Platelet Count Result 378 k/mm3 (150-375); Red Blood Count 4.12 M/mm3 (4.2-5.4); White Blood Count 9.9 K/mm3 (4.5-10.0)
[2025-01-23] MEDS: KETOROLAC 15 MG/ML VIAL (*BKC) IV PUSH (21:56)
[2025-01-23 22:07] LABS: Alanine Aminotransferase 11 U/L (6-35); Albumin Level 4.2 g/dL (3.5-5.1); Alkaline Phosphatase 95 U/L (38-126); Anion Gap 11 mmol/L (4-12); Aspartate Amino Transferase 23 U/L (14-36); Bilirubin,Total 0.4 mg/dL (0.2-1.3); Blood Urea Nitrogen 7 mg/dL (7-17); Calcium 9.2 mg/dL (8.4-10.2); Carbon Dioxide 23 mmol/L (22-30); Chloride 104 mmol/L (98-107); Estimated CRCL calculation 75 ml/min; Estimated Glomerular Filt Rate > 60; Glucose 88 mg/dL (65-110); Lipase 36 U/L (23-300); Potassium 4.4 mmol/L (3.4-5.0); Sodium 138 mmol/L (137-145); Total Protein 8.1 g/dL (6.3-8.2)
--- OUTSIDE RECORDS SUMMARY | 2025-01-23 22:11 | XMS_ITS | Clinical Summary ---
Author Organization [facility] [address] [place] Address [address] [place] [phone] Care Team Providers Care Tape Machine Tailer Name Role Phone Jason Bellamy MD Primary Care Provider [phone] Allergies Active Allergy Reactions Criticality Noted Date Comments Clindamycin Swelling Medium 09/09/2016 Doxycycline Urticaria Medium 04/19/2018 Penicillins Rash Medium 09/09/2016 Medications lmjzufht28-lsw s-Uhypatma-fqu al 27 mg iron-1.13 mg-581.92 mg capsule [...] Description 01/20/2025 7:15 PM CDT Office Visit [facility] Care at [address] [phone] Mamta Chand, MAYCOL RUQ abdominal [...] topic Varicella Vaccines Completed 12/30/2011, 07/18/2003 Insurance [facility] CHOICE PLUS Care Teams Tape Machine Tailer Relationship Specialty Start Date End Date Jason Bellamy MD PCP - General Family Medicine 02/05/23
--- OUTSIDE RECORDS SUMMARY | 2025-01-23 22:11 | XMS_ITS | Referral Summary ---
Author Organization [address] Address [address] [place] [phone] Care Team Providers Care Waste Paper Hammermill Operator Name Role Phone Jason Bellamy MD Primary Care Provider [phone] Encounters Date Type Department Care Team Description 01/20/2025 7:15 PM CDT Office Visit [facility] Medical [facility] Convenient Care at [address] [phone] Mamta Chand, MAYCOL RUQ abdominal pain (Primary Dx); RLQ abdominal pain from Last 3 Months Allergies Active Allergy Reactions Criticality Noted Date Comments Clindamycin Swelling Medium 09/09/2016 Doxycycline Urticaria Medium 04/19/2018 Penicillins Rash Medium 09/09/2016 Medications usoswcip00-ejl e-Kgvthtux-plp al 27 mg iron-1.13 mg-581.92 mg capsule [...] Plan of Treatment Not on file Insurance [facility] CHOICE PLUS [facility] HMO/PPO Address: [facility] [address] [place] [address] Care Teams Waste Paper Hammermill Operator Relationship Specialty Start Date End Date Jason Bellamy MD PCP - General Family Medicine 02/05/23
--- OUTSIDE RECORDS SUMMARY | 2025-01-23 22:11 | XMS_ITS | Clinical Summary ---
Author Organization [facility] Address [address] [facility] [place] [address] Care Team Providers Care Rougher Merchant Mill Name Role Phone Unavailable Primary Care Provider Unavailabl e Source Comments [facility],non-owned Affiliates and Associated Physician Practices is amultiple site organization consisting of ambulatory clinics and hospital sitesin [place], [place], [place] and [place]. This disclosure is being madepursuant to the Care Everywhere program and may not contain all information available regarding this patient. Last updated 18.[facility] Allergies Active Allergy Reactions Criticality Noted Date [...]
[2025-01-23 23:23] LABS: Add Urine Microscopic? YES; Appearance Urine Clear (Clear); Glucose Urine UA Negative (Negative); Leukocyte Esterase Ur 2+ LEU/UL (Negative); Nitrate Urine Negative (Negative); Non Pathogenic Casts 0-2; Specific Grav Ur 1.016 (1.001-1.035)
[2025-01-23] MEDS: SULFAMETHOXAZOLE/TRIMETHOPRIM 800/160 MG DS TABLET 1 TAB PO (23:38)
--- NOTE | 2025-01-23 23:59 | ED.ABDPAIN ---
HPI - Abdominal Pain General Chief Complaint: Abdominal Pain Stated Complaint: abd pain Time Seen by Provider: 01/23/25 21:18 History of Present Illness HPI narrative: For last few days patient has had intermittent discomfort to her right upper side, seems to be better with bowel movement, has not had symptoms like this before. No fevers or chills, nausea vomiting. Does report pain with taking deep breaths and shortness of breath intermittently Related Data Home Medications ?Medication ?Instructions ?Recorded ?Confirmed ?Last Taken ?Type multivitamin with minerals-folic 1 tablet PO DAILY 01/14/21 06/23/24 Unknown History acid 0.4 mg tablet (Adult One Daily Multivitamin) Allergies Allergy/AdvReac Type Severity Reaction Status Date / Time clindamycin Allergy Severe FACIAL Verified 06/23/24 11:57 SWELLING Penicillins Allergy Severe ANAPHYLACTIC Verified 06/23/24 11:57 REACTION doxycycline Allergy Intermediate Hives / Verified 06/23/24 11:57 Red Face Review of Systems Review of Systems: All systems reviewed & are unremarkable except as noted in HPI and below PMFSH Past Medical History Medical History Chest pain Chest discomfort Late period Chronic tonsillitis Sore throat Tonsillitis Recurrent tonsillitis Abdominal discomfort Post-operative pain Exposure to COVID-19 virus Costochondral pain Shortness of breath Contact dermatitis Obstructive lung disease Atrial septal aneurysm Bronchitis Sinusitis BMI 22.0-22.9, adult Family History Family History Father Hypertension Depression Mother Depression Sibling No problems noted. Grandparent Cancer Hypertension Depression Heart disease Grandparent Hypertension Depression Other Malignant neoplasm of prostate Skin cancer Thyroid cancer Social History Social History Years smoked: 1 Smoking status: Former smoker Tobacco type: e-cigarettes/vaping Second hand tobacco smoke exposure: No Alcohol intake: current Drinks per week: 2 Substance use: current Substance use type: marijuana Other substance usage details: 1GM/WEEK Do You Feel Safe in your Home?: Yes Lack of Transportation: No Lack of Food: Never True Current Housing: I Have Housing Concerned About Future Housing: No Difficulty Paying Gas/Electric Bills: No Difficulty Paying for Meds: No Currently Unemployed: No Education: High School Diploma/GED Difficulty w/ Childcare or Family Care: No Living arrangements: with family Occupation/Education: student Additional occupation/education comments: [employer]. Gender identity (if verbalized by the patient): Female Spiritual care concerns: No Exam Narrative: EXAMINATION OF ORGAN SYSTEMS/BODY AREAS: Constitutional: Vital signs per nursing GENERAL:[No acute distress, non-toxic appearing.] HEAD: Normal with no signs of head trauma. EYES: EOMI, conjunctiva normal ENT: Hearing grossly intact LUNGS: Nonlabored breathing. HEART: [Regular rate and rhythm] ABD: [Soft], [nontender to palpation] EXT: Normal range of motion SKIN: [No rashes or lesions.] NEURO: [Alert and oriented x 3. No gross focal sensory or strength deficits.] PSYCH: Normal affect Course Vital Signs Vital signs: Vital Signs Temperature 98.0 F 01/23/25 17:20 Pulse Rate 82 01/23/25 17:20 Respiratory Rate 18 01/23/25 17:20 Blood Pressure 127/77 01/23/25 17:20 Pulse Oximetry 100 01/23/25 17:20 Temperature 98.0 F 01/23/25 17:20 Pulse Rate 82 01/23/25 17:20 Respiratory Rate 18 01/23/25 17:20 Blood Pressure 112/50 L 01/23/25 22:44 Pulse Oximetry 100 01/23/25 22:44 MDM - Abdominal Pain MDM Narrative Medical decision making narrative: Electronic medical record was reviewed. Patient presented to the ED with complaint of [abdominal pain and some pleuritic discomfort the right]. Vitals [were within acceptable limits]. Physical exam revealed soft, nontender abdomen, well-appearing patient. Based on the patient's history and physical exam, my differential includes but is not limited to [gastritis, gastroenteritis, cholecystitis, UTI, renal colic, PE]. [IV access was established by nursing staff. Patient was given Toradol]. CBC, BMP, lipase, LFTs, bilirubin and alk phos were obtained. Labs were pertinent for elevated D-dimer, UA showing UTI. CT chest abdomen pelvis thankfully without any acute abnormality. On reevaluation, the patient states that they are feeling much better. There were no witnessed episodes of vomiting in the emergency department. They are not complaining of any new abdominal pain. Repeat examination did not show any significant guarding or rebound. No new tenderness. She started on antibiotics for the UTI. The patient was given strict return precautions, if they are to develop any worsening abdominal pain, vomiting, or blood in the vomit they are to return to the emergency department immediately. Patient verbally acknowledges understanding these directions. [The patient was informed of the above diagnostic test findings.] No further workup is necessary at this time. They will be discharged home [with prescriptions]. They were advised to follow-up with [their PCP] in 2 days. The patient feels that this is appropriate medical decision making and verbalizes an understanding of the discharge instructions. Lab Data 01/23/25 21:42 01/23/25 21:42 Labs: Lab Results 01/23/25 01/23/25 01/23/25 Range/Units 21:41 21:42 23:10 WBC 9.9 (4.5-10.0) K/mm3 RBC 4.12 L (4.2-5.4) M/mm3 Hgb 11.7 L (12.0-15.0) g/dL Hct 35.8 L (37.0-47.0) % MCV 86.9 (80-100) fl MCH 28.4 (26-34) pg MCHC 32.7 (32-36) g/dl RDW 11.9 (11.5-14.5) % Plt Count 378 H D (150-375) k/mm3 MPV 8.7 (7.4-10.4) fl Immature Gran % (Auto) 0.4 (0-0.5) % Neut % (Auto) 56.1 (45.5-73.1) % Lymph % (Auto) 30.1 (18.3-44.2) % [place] % (Auto) 5.3 (2.6-8.5) % Eos % (Auto) 7.7 H (0-4.4) % Baso % (Auto) 0.4 (0.2-1.2) % Lymph # (Auto) 2.99 (0.9-3.2) K/mm3 [place] # (Auto) 0.5 (0.1-0.6) K/mm3 Eos # (Auto) 0.8 H (0-0.3) K/mm3 Baso # (Auto) 0.0 (0.0-0.1) K/mm3 Abs Immat Gran (auto) 0.04 H (0.00-0.031) K/mm3 Absolute Neuts (auto) 5.6 (1.3-6.7) K/mm3 Absolute Nucleated RBC 0.000 (0.0-0.012) K/mm3 Nucleated RBC % 0.0 (0.0-0.2) % D-Dimer 1.17 H (<0.48) ug/mL Sodium 138 (137-145) mmol/L Potassium 4.4 (3.4-5.0) mmol/L Chloride 104 (98-107) mmol/L Carbon Dioxide 23 (22-30) mmol/L Anion Gap 11 (4-12) mmol/L BUN 7 (7-17) mg/dL Creatinine 0.88 (0.7-1.0) mg/dL Estim Creat Clear Calc 75 ml/min Estimated GFR > 60 (59 - ) Glucose 88 (65-110) mg/dL Calcium 9.2 (8.4-10.2) mg/dL Total Bilirubin 0.4 (0.2-1.3) mg/dL AST 23 (14-36) U/L ALT 11 (6-35) U/L Alkaline Phosphatase 95 (38-126) U/L Total Protein 8.1 (6.3-8.2) g/dL Albumin 4.2 (3.5-5.1) g/dL Lipase 36 (23-300) U/L Urine Color Yellow (Yellow) Urine Appearance Clear (Clear) Urine pH 6.0 (5.0-9.0) Ur Specific [place] 1.016 (1.001-1.035) Urine Protein Negative (Negative) mg/dL Urine Glucose (UA) Negative (Negative) mg/dL Urine Ketones Trace H (Negative) mg/dL Ur Blood (Man) Negative (Negative) Urine Nitrate Negative (Negative) Urine Bilirubin Negative (Negative) Urine Urobilinogen 0.2 (<2.0) mg/dL Leukocyte Esterase Rfl 2+ H (Negative) ALEKSANDER/UL Urine RBC 0-2 (0-2) /hpf Urine WBC 21-50 H (0-3) /hpf Ur Squamous Epith Cells Occasional (Few) /hpf Urine Bacteria Rare /hpf Urine Casts 0-2 POC Urine HCG, Qual Negative (Negative) Imaging Data Radiologist's impression: ITS Impressions Chest/Abdomen/Pelvis CTA 01/23/25 22:46 IMPRESSION: 1. No pulmonary embolism or other acute cardiopulmonary disease. 2. No acute intra-abdominal/pelvic process. Discharge Plan Discharge Clinical Impression: Abdominal pain, UTI (urinary tract infection) Patient Disposition: Home Condition: Stable Instructions: Antibiotic Form, Urinary Tract Infection in Women (ED) Additional Instructions: Please follow up with your doctor; you can always return for any further issues. Patient Language: Marshallese Prescriptions: New famotidine 20 mg tablet 20 mg PO DAILY Qty: 30 0RF dicyclomine 20 mg tablet 20 mg PO TID PRN (Reason: abdominal pain) Qty: 30 0RF alum-mag hydroxide-simeth [Maalox Advanced] 200-200-20 mg/5 mL suspension 10 ml PO QID PRN (Reason: dyspepsia) Qty: 200 0RF Rx Instructions: administer between meals and at bedtime sulfamethoxazole-trimethoprim [Bactrim DS] 800-160 mg tablet 1 tablet PO Q12H Qty: 14 0RF No Action azithromycin [Zithromax] 250 mg tablet See Rx Instructions PO .COMPLEX Qty: 6 0RF Rx Instructions: For 250 mg dose pack: take 500 mg today (day 1), then 250 mg for 4 days (days 2-5) PO Adult One Daily Multivitamin 0.4 mg Tablet 1 tablet PO DAILY albuterol sulfate [ProAir HFA] 90 mcg/actuation HFA aerosol inhaler 1 inh inhalation Q4H PRN (Reason: bronchospasm) Qty: 6.7 3RF Follow-up/Referrals: Jason Bellamy MD [Primary Care Provider] - 2 Days
== END 2025-01-23 23:50 | disposition home or self-care (01) ==
PROVIDERS: Emergency Provider Emergency Medicine; PCP Family Medicine
DX: N39.0 Urinary tract infection, site not specified (principal); R10.11 Right upper quadrant pain; J44.9 Chronic obstructive pulmonary disease, unspecified
CPT/HCPCS: 36415; 71275; 74177; 80053; 81001; 81025; 83690; 85025; 85380; 87086; 96374; 99284; A9270; J1885; Q9967